=== PATIENT | male | born 1995 | race African-American/Black ===

== ENCOUNTER 2017-05-08 11:08 | Emergency (ER) | payer MEDICAID ==
[~2017-05-08] VITALS: Ht 190.5 cm; Wt 102.0 kg
[2017-05-08] MEDS ORDERED: KEPP500 PO (11:13)
[2017-05-08] MEDS ORDERED: SODIUM CHLORIDE 0.9% 1,000 ML IV ONE (11:45)
[2017-05-08] MEDS ORDERED: LEVETIRACETAM 500MG PREMIX 100 ML IV ONE (11:45)
[2017-05-08] MEDS ORDERED: ACETAMINOPHEN 325MG TABLET PO STA (11:45)
[2017-05-08 12:14] LABS: BASOPHILS % 0.3 % (0.0-2.0); EOSINOPHILS % 1.3 % (0.0-5.0); HEMATOCRIT. 42.3 % (42.0-52.0); HEMOGLOBIN. 14.5 g/dL (14.0-18.0); LYMPHOCYTES % 30.2 % (20.0-50.0); MEAN CORPUSCULAR VOLUME 90.4 fL (80.0-94.0); MEAN PLATELET VOLUME 7.1 fl (7.4-10.4); MONOCYTES % 6.2 % (2.0-8.0); PLATELET 209 x1000/uL (130-400); RED BLOOD CELL COUNT 4.68 mill/uL (4.7-6.1)
[2017-05-08 12:23] LABS: CHLORIDE 105 mEq/L (98-107)
[2017-05-08 13:45] VITALS: BP 117/73
== END 2017-05-08 13:45 | disposition home or self-care (01) ==
LOC: ER 11:24
DX: G40.909 Epilepsy, unspecified, not intractable, without status epilepticus (principal); F17.200 Nicotine dependence, unspecified, uncomplicated; F12.10 Cannabis abuse, uncomplicated
CPT/HCPCS: 36415; 80053; 85025; 96365; 99284; J1953; J7030